=== PATIENT | female | born 1965 | race African-American/Black ===

== ENCOUNTER → 2019-09-28 | Outpatient (CLI) | payer OTHER | LOC: CAT 15:01 → ULTRA 15:01 | DX: Z13.6 Encounter for screening for cardiovascular disorders (principal); D25.9 Leiomyoma of uterus, unspecified; R93.89 Abnormal findings on diagnostic imaging of other specified body structures; E78.00 Pure hypercholesterolemia, unspecified; I25.10 Atherosclerotic heart disease of native coronary artery without angina pectoris ==